=== PATIENT | female | born 1975 | race Caucasian/White ===

== ENCOUNTER 2019-03-05 16:36 | Emergency (ER) | payer MEDICAID ==
[~2019-03-05] VITALS: Ht 152.4 cm; Wt 88.0 kg
[2019-03-05] MEDS ORDERED: SODIUM CHLORIDE 0.9% 1,000 ML IV ONE (17:01)
[2019-03-05] MEDS ORDERED: KETOROLAC 30MG/ML VIAL IV STA (17:01)
[2019-03-05] MEDS ORDERED: ONDANSETRON HCL 4MG/2ML INJ IV STA (17:01)
[2019-03-05] MEDS ORDERED: CEFTRIAXONE 1 G PREMIX 50 ML IV ONE (17:15)
[2019-03-05 17:29] LABS: CLARITY URINE CLEAR (CLEAR); COLOR URINE YELLOW (YELLOW); KETONES URINE NEGATIVE (NEGATIVE); LEUKOCYTE ESTERASE URINE 2+ (NEGATIVE); NITRITE URINE NEGATIVE (NEGATIVE); OCCULT BLOOD URINE TRACE (NEGATIVE); PROTEIN URINE NEGATIVE (NEGATIVE); SPECIFIC GRAVITY URINE 1.023 (1.005-1.030); UROBILINOGEN URINE 0.2 E.U./dL (0.2-1.0)
[2019-03-05 18:11] LABS: BASOPHILS % 0.5 % (0.0-2.0); EOSINOPHILS % 1.8 % (0.0-5.0); HEMATOCRIT. 38.9 % (36.0-48.0); HEMOGLOBIN. 13.6 g/dL (12.0-16.0); LYMPHOCYTES % 30.9 % (20.0-50.0); MEAN CORPUSCULAR HEMOGLOBIN 30.2 pg (28.0-32.0); MEAN CORPUSCULAR VOLUME 86.1 fL (81.0-99.0); MEAN PLATELET VOLUME 9.1 fl (7.4-10.4); MONOCYTES % 7.3 % (2.0-8.0); NEUTROPHILS % 59.5 % (40.0-76.0); PLATELET 316 x1000/uL (130-400); RED BLOOD CELL COUNT 4.51 mill/uL (4.2-5.4); RED CELL DISTRIBUTION WIDTH 12.9 % (11.6-14.6)
[2019-03-05 18:20] LABS: CHLORIDE 106 mEq/L (98-107)
[2019-03-05 18:58] LABS: HCG SCREEN NEGATIVE
[2019-03-05 19:27] VITALS: BP 117/84
== END 2019-03-05 19:28 | disposition home or self-care (01) ==
LOC: ER 17:32
DX: N12 Tubulo-interstitial nephritis, not specified as acute or chronic (principal); K76.0 Fatty (change of) liver, not elsewhere classified
CPT/HCPCS: 36415; 74176; 80053; 81003; 81025; 83605; 83690; 84703; 85025; 87040; 87086; 96365; 96375; 99284; J0696; J1885; J2405; J7030

== ENCOUNTER 2019-09-10 18:28 | Emergency (ER) | payer MEDICAID ==
[~2019-09-10] VITALS: Ht 152.4 cm; Wt 91.0 kg
[2019-09-10] MEDS ORDERED: ASPIRIN 81MG TABLET PO ONE (21:15)
[2019-09-10] MEDS ORDERED: NITROGLYCERIN OINT 1GM/INCH UDPKT TD ONE (21:15)
[2019-09-10] MEDS ORDERED: MAGNESIUM/ALUMINUM HYDROXIDE/SIMETHICONE 30ML UDC PO ONE (21:15)
[2019-09-10 21:33] LABS: BASOPHILS % 0.7 % (0.0-2.0); EOSINOPHILS % 3.6 % (0.0-5.0); HEMATOCRIT. 41.3 % (36.0-48.0); HEMOGLOBIN. 14.2 g/dL (12.0-16.0); LYMPHOCYTES % 31.2 % (20.0-50.0); MEAN CORPUSCULAR HEMOGLOBIN 29.7 pg (28.0-32.0); MEAN CORPUSCULAR VOLUME 86.5 fL (81.0-99.0); MEAN PLATELET VOLUME 8.7 fl (7.4-10.4); NEUTROPHILS % 58.5 % (40.0-76.0); PLATELET 324 x1000/uL (130-400); RED BLOOD CELL COUNT 4.78 mill/uL (4.2-5.4)
[2019-09-10 21:44] LABS: CHLORIDE 106 mEq/L (98-107)
[2019-09-11 01:02] VITALS: BP 110/70
== END 2019-09-11 01:03 | disposition home or self-care (01) ==
LOC: ER 18:35
DX: R07.89 Other chest pain (principal); R06.02 Shortness of breath
CPT/HCPCS: 36415; 71045; 80053; 81025; 83690; 84484; 85025; 93005; 99284; Z7610

== ENCOUNTER 2022-06-05 19:27 | Emergency (ER) | payer MEDICAID ==
[~2022-06-05] VITALS: Ht 152.4 cm; Wt 78.0 kg
[2022-06-05] MEDS ORDERED: ACETAMINOPHEN 325MG TABLET PO ONE (20:45)
[2022-06-05] MEDS ORDERED: SULFAMETHOXAZOLE/TRIMETHOPRIM 800/160MG TABLET PO ONE (20:45)
[2022-06-05] MEDS ORDERED: IBUPROFEN 400MG TABLET PO ONE (20:45)
[2022-06-05] MEDS ORDERED: CEPHALEXIN 250MG CAPSULE PO ONE (20:45)
[2022-06-05] MEDS ORDERED: LIDOCAINE HCL/EPINEPHRINE 1%-EPI 1:100,000 10 ML VIAL INFIL NR (21:30)
[2022-06-05] MEDS ORDERED: LIDOCAINE HCL/EPINEPHRINE 1%-EPI 1:100,000 20 ML VIAL INFIL ONE (21:30)
[2022-06-05] MEDS ORDERED: CEPH500C2 MT (21:56)
[2022-06-05] MEDS ORDERED: SULF1TAB48 MT (21:56)
[2022-06-05 22:00] VITALS: BP 120/60
== END 2022-06-05 22:03 | disposition home or self-care (01) ==
LOC: ER 19:27
DX: L02.214 Cutaneous abscess of groin (principal)
CPT/HCPCS: 10060; 99284; J3490

== ENCOUNTER 2022-06-07 16:43 | Emergency (ER) | payer MEDICAID ==
[~2022-06-07] VITALS: Ht 152.4 cm; Wt 77.0 kg
[~2022-06-07 16:43] MED LIST: CEPH500C2 MT; SULF1TAB48 MT
[2022-06-07 16:54] VITALS: BP 138/94
== END 2022-06-07 18:15 | disposition home or self-care (01) ==
LOC: ER 16:46
DX: Z48.02 Encounter for removal of sutures (principal)
CPT/HCPCS: 99284; Z7610

== ENCOUNTER 2024-05-21 19:38 | Emergency (ER) | payer MEDICAID ==
[~2024-05-21] VITALS: Ht 152.4 cm; Wt 89.0 kg
[2024-05-21 19:41] VITALS: O2SAT 99
[2024-05-21 20:08] LABS: BASOPHILS % 0.3 % (0.0-2.0); HEMATOCRIT. 41.3 % (36.0-48.0); HEMOGLOBIN. 13.5 g/dL (12.0-16.0); MEAN CORPUSCULAR HEMOGLOBIN 27.7 pg (28.0-32.0); MEAN CORPUSCULAR HGB CONC 32.8 g/dL (31.0-37.0); MEAN CORPUSCULAR VOLUME 84.6 fL (81.0-99.0); MEAN PLATELET VOLUME 8.7 fl (7.4-10.4); MONOCYTES % 6.1 % (2.0-8.0); NEUTROPHILS % 79.6 % (40.0-76.0); PLATELET 353 x1000/uL (130-400); RED BLOOD CELL COUNT 4.89 mill/uL (4.2-5.4); RED CELL DISTRIBUTION WIDTH 14.3 % (11.6-14.6)
[2024-05-21 20:14] LABS: CHLORIDE 99 mEq/L (98-107); POTASSIUM 3.8 mEq/L (3.5-5.1); SODIUM 131 mEq/L (136-145)
[2024-05-21 20:15] LABS: CALCIUM 9.7 mg/dL (8.7-10.4); CARBON DIOXIDE 25 mEq/L (21-32)
[2024-05-21 20:20] LABS: CREATININE 0.8 mg/dL (0.6-1.0); GLUCOSE 133 mg/dL (70-105); UREA NITROGEN BLOOD 11 mg/dL (9-23)
[2024-05-21 20:21] LABS: HCG SCREEN NEGATIVE
[2024-05-22] MEDS: KETOROLAC 30MG/ML VIAL IV ONE (00:04)
[2024-05-22] MEDS: SODIUM CHLORIDE 0.9% 1,000 ML IV ONE (00:04)
[2024-05-22] MEDS: AMPICILLIN SOD/SULBACTAM NA 1.5 G in SODIUM CHLORIDE 0.9% 50 ML IV SCH (00:05)
[2024-05-22 01:22] LABS: CLARITY URINE CLEAR (CLEAR); COLOR URINE YELLOW (YELLOW); GLUCOSE URINE NEGATIVE (NEGATIVE); KETONES URINE 1+ (NEGATIVE); LEUKOCYTE ESTERASE URINE 3+ (NEGATIVE); NITRITE URINE NEGATIVE (NEGATIVE); OCCULT BLOOD URINE 1+ (NEGATIVE); PROTEIN URINE NEGATIVE (NEGATIVE); UROBILINOGEN URINE 0.2 E.U./dL (0.2-1.0)
[2024-05-22] MEDS ORDERED: NAPR-681 MT (01:29)
[2024-05-22] MEDS ORDERED: AMOX1TAB16 MT (01:29)
[2024-05-22] MEDS ORDERED: HYDR-4001 MT (01:29)
[2024-05-22] MEDS ORDERED: ONDA4TAB11 PO (01:30)
[2024-05-22 01:44] VITALS: BP 132/81; PULSE 88; RESP 19; TEMP 98.9
[2024-05-22 03:08] LABS: SQUAMOUS EPITHELIAL CELL URINE 1+ /lpf (RARE/1+); WBC URINE 25-50 /hpf (0-2)
[2024-05-22 03:09] LABS: RBC URINE 0-2 /hpf (0-2)
[2024-05-22 03:10] LABS: BACTERIA URINE TRACE
== END 2024-05-22 01:47 | disposition home or self-care (01) ==
LOC: ER 19:38
DX: K57.92 Diverticulitis of intestine, part unspecified, without perforation or abscess without bleeding (principal); Z79.899 Other long term (current) drug therapy
CPT/HCPCS: 99291; 74176; 80048; 84703; 83605; 85025; 87040; 36415; 84145; 93005; 96365; 96375; 81003; 87086; J0295; J1885; J7030